=== PATIENT | male | born 1995 | race Two or more races ===

== ENCOUNTER 2018-08-25 14:17 | Outpatient (CLI) | payer BC | END 2018-08-25 14:20 | disposition home or self-care (01) | LOC: LAB 14:17 | DX: J11.1 Influenza due to unidentified influenza virus with other respiratory manifestations (principal); J06.9 Acute upper respiratory infection, unspecified; J18.0 Bronchopneumonia, unspecified organism ==

== ENCOUNTER → 2018-12-05 | Emergency (ER) | payer BC ==
[~2018-12-05] VITALS: Ht 177.8 cm; Wt 73.9 kg
== END | disposition home or self-care (01) ==
LOC: ER 12:05
DX: I86.1 Scrotal varices (principal)